=== PATIENT | female | born 1995 | race Two or more races ===

== ENCOUNTER 2022-04-16 23:04 | Emergency (ER) | payer MEDICAID, OTHER ==
[~2022-04-16] VITALS: Ht 165.1 cm; Wt 235.0 kg
[2022-04-17 00:26] VITALS: BP 112/68
[2022-04-17] MEDS ORDERED: TETANUS-DIPTH-ACEL PERTUSSIS 0.5ML SYR Tdap IM ONE (01:00)
[2022-04-17] MEDS ORDERED: CEPH-510 PO (01:47)
[2022-04-17] MEDS ORDERED: ACET-1158 PO (01:47)
== END 2022-04-17 02:00 | disposition home or self-care (01) ==
LOC: ER 23:04
DX: S61.211A Laceration without foreign body of left index finger without damage to nail, initial encounter (principal); W26.0XXA Contact with knife, initial encounter; Y93.89 Activity, other specified; Y92.89 Other specified places as the place of occurrence of the external cause; Y99.8 Other external cause status
CPT/HCPCS: 12001; 90471; 90715; 99283; J2001